=== PATIENT | female | born 1935 | race Caucasian/White ===

== ENCOUNTER 2017-08-11 08:28 | Day surgery (SDC) | payer MEDICARE, BC ==
[~2017-08-11] VITALS: Ht 172.8 cm; Wt 74.0 kg
[~2017-08-11 08:28] MED LIST: ATIVAN 0.50.5 MG/TAB PO; CEFTIN500 MG PO; JANTOVEN2 MG PO; LANOXIN 0.25M0.25 MG PO; LOPRESSOR 550 MG/TAB PO; LUTEIN20 MG PO; NORCO 325 MG-51 TAB PO; PROTONIX 40MG T40 MG PO; TOPROL XL 50MG50 MG PO; TYLENOL 500MG500 MG PO; VALIUM 5MG T5 MG/TAB PO
[2017-08-11 08:50] LABS: HEMATOCRIT 41.2 % (37.0-47.0); HEMOGLOBIN 13.1 g/dl (12.5-16.0); MEAN CELL VOLUME 100 fl (80.0-100.0); MEAN CORPUSCULAR HEMOGLOBIN 32 pg (27.0-31.0); MEAN CORPUSCULAR HGB CONC 32 g/dl (33.0-37.0); MEAN PLATELET VOLUME 9.7 fl (7.4-10.4); PLATELET COUNT 273 K/mm3 (130-400); RED BLOOD COUNT 4.12 M/mm3 (4.10-5.30); REDCELL DISTRIBUTION WIDTH-CV 13.3 % (11.5-14.5)
[2017-08-11 08:55] LABS: INR 1.8 (0.8-3.0); PROTHROMBIN TIME 20.6 SECONDS (9.7-12.8)
[2017-08-11 09:02] LABS: CALCIUM 9.2 mg/dL (8.4-10.2); CREATININE, serum 0.86 mg/dL (0.52-1.25); POTASSIUM 3.9 mmol/L (3.4-5.0)
[2017-08-11] MEDS ORDERED: PROZAC 10MG10 MG PO (09:11)
[2017-08-11] MEDS ORDERED: TAMBOCOR 1100 MG/TAB PO (09:11)
[2017-08-11] MEDS ORDERED: GLUCOPHAGE500 MG/TAB PO (09:13)
[2017-08-11] MEDS ORDERED: DOXYCYCLINE 50M50 MG PO (09:13)
[2017-08-11 09:14] VITALS: BP 136/87; PULSE 83; TEMP 97.5
[2017-08-11] MEDS ORDERED: B-12 500 MCG PO (09:52)
[2017-08-11] MEDS ORDERED: ZEBETA 5MG5 MG PO ×2 (09:53→11:40)
[2017-08-11] MEDS ORDERED: COUMADIN 2MG2 MG/TAB PO (09:55)
[2017-08-11 11:30] VITALS: BP 99/67; PULSE 52
[2017-08-11 11:45] VITALS: BP 111/73; PULSE 50
[2017-08-11 12:00] VITALS: BP 105/71; PULSE 50
[2017-08-11 12:15] VITALS: BP 106/83; PULSE 50
[2017-08-11 12:30] VITALS: BP 121/69; PULSE 54; TEMP 97.7
== END 2017-08-11 13:13 | disposition home or self-care (01) ==
LOC: COL.CAR 08:28
PROVIDERS: Internal Medicine Cardiovascular Disease
DX: I48.0 Paroxysmal atrial fibrillation (principal); I48.4 Atypical atrial flutter; Z79.01 Long term (current) use of anticoagulants; I10 Essential (primary) hypertension; Z86.718 Personal history of other venous thrombosis and embolism; E11.9 Type 2 diabetes mellitus without complications; Z79.84 Long term (current) use of oral hypoglycemic drugs; Z85.3 Personal history of malignant neoplasm of breast; Z85.118 Personal history of other malignant neoplasm of bronchus and lung; Z92.3 Personal history of irradiation; Z92.21 Personal history of antineoplastic chemotherapy; F32.9 Major depressive disorder, single episode, unspecified; F41.9 Anxiety disorder, unspecified; I34.0 Nonrheumatic mitral (valve) insufficiency; I08.2 Rheumatic disorders of both aortic and tricuspid valves; Z85.820 Personal history of malignant melanoma of skin; Z88.8 Allergy status to other drugs, medicaments and biological substances; Z68.24 Body mass index [BMI] 24.0-24.9, adult
CPT/HCPCS: G9654; J2704; J7030

== ENCOUNTER 2018-02-14 16:24 | Emergency (ER) | payer MEDICARE, BC ==
[~2018-02-14] VITALS: Ht 172.7 cm; Wt 74.1 kg
[~2018-02-14 16:24] MED LIST changes: +ANTIVERT 25MG25 MG PO; +B-12 500 MCG PO; +BETAPACE 120MG120 MG PO; +CALCIUM CARB500 MG PO; +CEPHALEXIN500 M1 PO; +COUMADIN 2MG2 MG/TAB PO; +DOXYCYCLINE 50M50 MG PO; +FOSAMAX 70MG TA70 MG PO; +GLUCOPHAGE500 MG/TAB PO; +PROZAC 10MG10 MG PO; +TAMBOCOR 1100 MG/TAB PO; +VITAMIN D31000 I1 PO; +ZEBETA 5MG5 MG PO
[2018-02-14 16:35] VITALS: TEMP 98.2
[2018-02-14 17:01] LABS: INR 3.9 (0.8-3.0); PROTHROMBIN TIME 44.6 SECONDS (9.7-12.8)
[2018-02-14 17:02] LABS: BASO # 0.1 (0.0-0.2); BASO % 0.7 % (0.0-2.0); EOS % 0.2 % (0-4.0); GRAN % 69.1 % (42.2-75.2); HEMATOCRIT 37.7 % (37.0-47.0); HEMOGLOBIN 11.8 g/dl (12.5-16.0); LYMPH # 1.7 (1.2-3.4); MEAN CELL VOLUME 97 fl (80.0-100.0); MEAN CORPUSCULAR HEMOGLOBIN 30 pg (27.0-31.0); MEAN CORPUSCULAR HGB CONC 31 g/dl (33.0-37.0); MEAN PLATELET VOLUME 9.1 fl (7.4-10.4); MONO # 0.8 (0.1-0.6); MONO % 9.7 % (1.7-9.3); PLATELET COUNT 489 K/mm3 (130-400); RED BLOOD COUNT 3.88 M/mm3 (4.10-5.30); REDCELL DISTRIBUTION WIDTH-CV 13.3 % (11.5-14.5)
[2018-02-14 17:07] LABS: ALANINE AMINOTRANSFERASE 21 U/L (9-52); ALBUMIN 3.9 gm/dL (3.5-5.0); ALKALINE PHOSPHATASE 119 U/L (50-136); ANION GAP 11 mmol/L (7-16); AST,SGOT 26 U/L (15-37); BILIRUBIN,TOTAL 0.6 mg/dL (0.0-1.0); BLOOD UREA NITROGEN 13 mg/dL (7-17); CALCIUM 9.3 mg/dL (8.4-10.2); CARBON DIOXIDE 28 mmol/L (22-30); CHLORIDE 94 mmol/L (98-107); GLUCOSE 134 mg/dL (74-106); POTASSIUM 4.3 mmol/L (3.4-5.0); SODIUM 133 mmol/L (137-145); TOTAL PROTEIN 7.8 gm/dL (6.4-8.2)
[2018-02-14 17:18] LABS: TROPONIN-I < 0.012 ng/mL (0.000-0.034)
[2018-02-14 19:52] VITALS: BP 102/77; PULSE 103
== END 2018-02-14 20:10 | disposition other institution (70) ==
LOC: COL.ER 16:24
PROVIDERS: Emergency Medicine
DX: I48.92 Unspecified atrial flutter (principal); R07.9 Chest pain, unspecified; R06.00 Dyspnea, unspecified; I10 Essential (primary) hypertension; Z85.3 Personal history of malignant neoplasm of breast; Z85.118 Personal history of other malignant neoplasm of bronchus and lung; Z95.9 Presence of cardiac and vascular implant and graft, unspecified; Z95.0 Presence of cardiac pacemaker; Z79.01 Long term (current) use of anticoagulants; Z79.84 Long term (current) use of oral hypoglycemic drugs
CPT/HCPCS: J7030

== ENCOUNTER → 2018-03-09 | Outpatient (REF) ==
[2018-03-09 10:06] LABS: CALCIUM 9.1 mg/dL (8.4-10.2); CREATININE, serum 0.67 mg/dL (0.52-1.25); POTASSIUM 5.2 mmol/L (3.4-5.0)
== END ==
LOC: ZLAB.STJ 09:44
PROVIDERS: Family Medicine
DX: R79.89 Other specified abnormal findings of blood chemistry (principal)

== ENCOUNTER 2018-04-20 08:28 | Outpatient (CLI) | payer MEDICARE, BC ==
[~2018-04-20] VITALS: Ht 172.7 cm; Wt 70.3 kg
[2018-04-20] MEDS ORDERED: CALAN120 MG PO (09:06)
[2018-04-20] MEDS ORDERED: LASIX 20MG TABL20 MG PO (09:06)
[2018-04-20] MEDS ORDERED: MIRALAX PA17 GM/Dose PO (09:06)
[2018-04-20] MEDS ORDERED: LOPRESSOR100 MG PO (09:07)
[2018-04-20] MEDS ORDERED: ROXICODONE 55 MG/TAB PO (09:08)
[2018-04-20 09:09] VITALS: BP 143/106; PULSE 67; TEMP 98
[2018-04-20 09:31] LABS: HEMATOCRIT 45.3 % (37.0-47.0); HEMOGLOBIN 13.6 g/dl (12.5-16.0); MEAN CELL VOLUME 98 fl (80.0-100.0); MEAN CORPUSCULAR HEMOGLOBIN 29 pg (27.0-31.0); MEAN CORPUSCULAR HGB CONC 30 g/dl (33.0-37.0); MEAN PLATELET VOLUME 10.1 fl (7.4-10.4); PLATELET COUNT 339 K/mm3 (130-400); RED BLOOD COUNT 4.64 M/mm3 (4.10-5.30); REDCELL DISTRIBUTION WIDTH-CV 14.6 % (11.5-14.5)
[2018-04-20 09:36] LABS: INR 3.3 (0.8-3.0); PROTHROMBIN TIME 38.1 SECONDS (9.7-12.8)
[2018-04-20 09:54] LABS: CALCIUM 9.2 mg/dL (8.4-10.2); CREATININE, serum 0.78 mg/dL (0.52-1.25); POTASSIUM 4.1 mmol/L (3.4-5.0)
[2018-04-20 10:25] VITALS: BP 123/89; PULSE 88; TEMP 98
[2018-04-20 10:40] VITALS: BP 128/85; PULSE 84; TEMP 98
== END 2018-04-20 12:08 | disposition home or self-care (01) ==
LOC: COL.RAD 08:28
PROVIDERS: Internal Medicine Cardiovascular Disease
DX: I34.0 Nonrheumatic mitral (valve) insufficiency (principal); I51.7 Cardiomegaly; I35.1 Nonrheumatic aortic (valve) insufficiency
CPT/HCPCS: G9654; J2704

== ENCOUNTER → 2018-05-18 | Outpatient (CLI) | payer MEDICARE, BC ==
[~2018-05-18] VITALS: Ht 172.7 cm; Wt 68.8 kg
[~2018-05-18] MED LIST changes: +CALAN120 MG PO; +DOXYCYCLINE 10100 MG PO; +LASIX 20MG TABL20 MG PO; +LOPRESSOR100 MG PO; +MIRALAX PA17 GM/Dose PO; +ROXICODONE 55 MG/TAB PO
[2018-05-18 10:31] VITALS: BP 138/97; PULSE 104
== END ==
LOC: COL.RAD 09:45
PROVIDERS: Internal Medicine Pulmonary Disease
DX: J90 Pleural effusion, not elsewhere classified (principal); I48.91 Unspecified atrial fibrillation

== ENCOUNTER → 2018-06-08 | Outpatient (CLI) | payer MEDICARE, BC | LOC: MC.RAD 13:30 | DX: Z12.31 Encounter for screening mammogram for malignant neoplasm of breast (principal); C50.412 Malignant neoplasm of upper-outer quadrant of left female breast; Z90.12 Acquired absence of left breast and nipple ==

== ENCOUNTER → 2018-06-10 | Outpatient (CLI) | payer MEDICARE, BC | LOC: MC.RAD 09:28 | DX: C50.412 Malignant neoplasm of upper-outer quadrant of left female breast (principal); N64.89 Other specified disorders of breast | CPT/HCPCS: G0279 ==

== ENCOUNTER → 2019-06-29 | Outpatient (CLI) | payer MEDICARE, BC | LOC: MC.RAD 14:09 | DX: Z12.31 Encounter for screening mammogram for malignant neoplasm of breast (principal); Z90.12 Acquired absence of left breast and nipple; Z85.3 Personal history of malignant neoplasm of breast ==

== ENCOUNTER → 2020-07-01 | Outpatient (CLI) | payer MEDICARE, BC | LOC: MC.RAD 10:10 | DX: Z12.31 Encounter for screening mammogram for malignant neoplasm of breast (principal); Z90.12 Acquired absence of left breast and nipple ==

== ENCOUNTER 2020-09-09 07:38 | Inpatient (IN) | payer MEDICARE, BC ==
[~2020-09-09] VITALS: Ht 172.7 cm; Wt 74.1 kg
[2020-09-09 08:08] LABS: BASO # 0.1 (0.0-0.2); BASO % 0.6 % (0.0-2.0); EOS % 0.4 % (0-4.0); GRAN % 72.7 % (42.2-75.2); HEMATOCRIT 44.4 % (37.0-47.0); HEMOGLOBIN 13.7 g/dl (12.5-16.0); LYMPH # 1.6 (1.2-3.4); LYMPH % 17.1 % (20.0-51.0); MEAN CELL VOLUME 103 fl (80.0-100.0); MEAN CORPUSCULAR HEMOGLOBIN 32 pg (27.0-31.0); MEAN CORPUSCULAR HGB CONC 31 g/dl (33.0-37.0); MEAN PLATELET VOLUME 9.9 fl (7.4-10.4); MONO # 0.9 (0.1-0.6); MONO % 8.9 % (1.7-9.3); PLATELET COUNT 343 K/mm3 (130-400); RED BLOOD COUNT 4.33 M/mm3 (4.10-5.30); REDCELL DISTRIBUTION WIDTH-CV 14.1 % (11.5-14.5)
[2020-09-09 08:21] LABS: ALANINE AMINOTRANSFERASE 14 U/L (4-34); ALBUMIN 4.2 gm/dL (3.5-5.0); ALKALINE PHOSPHATASE 124 U/L (50-136); ANION GAP 7 mmol/L (7-16); AST,SGOT 26 U/L (15-37); BILIRUBIN,TOTAL 2.4 mg/dL (0.0-1.0); BLOOD UREA NITROGEN 14 mg/dL (7-17); CALCIUM 9.6 mg/dL (8.4-10.2); CARBON DIOXIDE 35 mmol/L (22-30); CHLORIDE 97 mmol/L (98-107); CREATININE, serum 0.74 (0.52-1.25); GLUCOSE 148 mg/dL (74-106); LIPASE 139 U/L (23-300); MAGNESIUM 2.3 mg/dL (1.6-2.3); PHOSPHOROUS 3.3 mg/dL (2.5-4.5); POTASSIUM 4.2 mmol/L (3.4-5.0); SODIUM 139 mmol/L (137-145); TOTAL PROTEIN 8.7 gm/dL (6.4-8.2)
[2020-09-09 08:33] LABS: TROPONIN-I < 0.012 ng/mL (0.000-0.035)
[2020-09-09 09:29] LABS: COLLECTION METHOD CLEAN CATCH
[2020-09-09 10:18] LABS: MUCOUS Present /lpf; PH 6 (5-8); URINE APPEARANCE Hazy; URINE BACTERIA Rare /hpf; URINE BILIRUBIN Positive (NEGATIVE); URINE BLOOD Negative (NEGATIVE); URINE CALCIUM OXALATE CRYSTAL Present /hpf; URINE COLOR Amber; URINE GLUCOSE Negative (NEGATIVE); URINE KETONE Trace (NEGATIVE); URINE LEUKOCYTE ESTERASE Negative (NEGATIVE); URINE NITRATE Negative (NEGATIVE); URINE PROTEIN(semi-quant) 2+ (NEGATIVE); URINE UROBILINOGEN >=4.0 mg/dL (NEGATIVE)
[2020-09-09 10:56] LABS: INR 1.6 (0.8-3.0); PROTHROMBIN TIME 18.4 SECONDS (9.7-12.8)
[2020-09-09] MEDS ORDERED: ZEBETA10 MG PO (11:03)
[2020-09-09] MEDS ORDERED: PEPCID 20MG TAB20 MG PO (11:03)
[2020-09-09 11:34] VITALS: BP 117/86; PULSE 100; TEMP 97.6
[2020-09-09 15:48] VITALS: BP 110/83; PULSE 99; TEMP 98
[2020-09-09 20:54] VITALS: BP 123/87; PULSE 100; TEMP 97
[2020-09-10] VITALS (20 sets, daily range): BP systolic 85–138; BP diastolic 62–87; PULSE 96–103; TEMP 97.3–97.9
[2020-09-10 07:14] LABS: BASO # 0.1 (0.0-0.2); BASO % 0.7 % (0.0-2.0); EOS # 0.1 (0.0-0.7); EOS % 1.6 % (0-4.0); GRAN # 5.7 (1.4-6.5); HEMATOCRIT 39.8 % (37.0-47.0); HEMOGLOBIN 12.2 g/dl (12.5-16.0); LYMPH # 1.5 (1.2-3.4); LYMPH % 17.6 % (20.0-51.0); MEAN CELL VOLUME 103 fl (80.0-100.0); MEAN CORPUSCULAR HEMOGLOBIN 32 pg (27.0-31.0); MEAN CORPUSCULAR HGB CONC 31 g/dl (33.0-37.0); MONO # 0.9 (0.1-0.6); MONO % 10.7 % (1.7-9.3); PLATELET COUNT 333 K/mm3 (130-400); RED BLOOD COUNT 3.86 M/mm3 (4.10-5.30); REDCELL DISTRIBUTION WIDTH-CV 13.9 % (11.5-14.5)
[2020-09-10 07:23] LABS: ALBUMIN 3.6 gm/dL (3.5-5.0); BILIRUBIN,TOTAL 1.4 mg/dL (0.0-1.0); CALCIUM 8.8 mg/dL (8.4-10.2); CREATININE, serum 0.83 (0.52-1.25); MAGNESIUM 2.3 mg/dL (1.6-2.3); POTASSIUM 3.6 mmol/L (3.4-5.0); TOTAL PROTEIN 7.7 gm/dL (6.4-8.2)
[2020-09-10 07:31] LABS: TROPONIN-I 0.014 ng/mL (0.000-0.035)
[2020-09-11] VITALS (8 sets, daily range): BP systolic 93–117; BP diastolic 56–71; PULSE 97–103; TEMP 97.5–98.3
[2020-09-11 07:09] LABS: BASO # 0.1 (0.0-0.2); BASO % 0.5 % (0.0-2.0); EOS # 0.1 (0.0-0.7); GRAN # 6.6 (1.4-6.5); GRAN % 72.3 % (42.2-75.2); HEMATOCRIT 42.6 % (37.0-47.0); HEMOGLOBIN 12.7 g/dl (12.5-16.0); LYMPH # 1.3 (1.2-3.4); LYMPH % 13.6 % (20.0-51.0); MEAN CELL VOLUME 105 fl (80.0-100.0); MEAN CORPUSCULAR HEMOGLOBIN 31 pg (27.0-31.0); MEAN CORPUSCULAR HGB CONC 30 g/dl (33.0-37.0); MEAN PLATELET VOLUME 10.5 fl (7.4-10.4); MONO # 1.1 (0.1-0.6); MONO % 12.3 % (1.7-9.3); PLATELET COUNT 374 K/mm3 (130-400); RED BLOOD COUNT 4.07 M/mm3 (4.10-5.30); REDCELL DISTRIBUTION WIDTH-CV 14.2 % (11.5-14.5)
[2020-09-11 07:26] LABS: CALCIUM 8.6 mg/dL (8.4-10.2); CREATININE, serum 0.89 (0.52-1.25)
[2020-09-11 07:32] LABS: INR 1.4 (0.8-3.0); PROTHROMBIN TIME 16.1 SECONDS (9.7-12.8)
[2020-09-11 09:56] LABS: PARTIAL THROMBOPLASTIN TIME 33.9 SECONDS (26.0-37.0)
[2020-09-11] MEDS ORDERED: THERATEARS 0.60.6 ML OP ×2 (18:06→18:07)
[2020-09-12 04:00] VITALS: BP 106/68; PULSE 73; TEMP 98.1
[2020-09-12 07:14] LABS: BASO # 0.1 (0.0-0.2); BASO % 0.8 % (0.0-2.0); EOS # 0.1 (0.0-0.7); EOS % 1.1 % (0-4.0); GRAN # 5.3 (1.4-6.5); GRAN % 59.7 % (42.2-75.2); HEMATOCRIT 42.2 % (37.0-47.0); HEMOGLOBIN 12.9 g/dl (12.5-16.0); LYMPH # 2.3 (1.2-3.4); LYMPH % 25.9 % (20.0-51.0); MEAN CELL VOLUME 103 fl (80.0-100.0); MEAN CORPUSCULAR HEMOGLOBIN 31 pg (27.0-31.0); MEAN CORPUSCULAR HGB CONC 31 g/dl (33.0-37.0); MEAN PLATELET VOLUME 10.7 fl (7.4-10.4); MONO # 1.1 (0.1-0.6); MONO % 12.2 % (1.7-9.3); PLATELET COUNT 377 K/mm3 (130-400); RED BLOOD COUNT 4.11 M/mm3 (4.10-5.30); REDCELL DISTRIBUTION WIDTH-CV 13.9 % (11.5-14.5)
[2020-09-12 07:28] LABS: ALBUMIN 3.5 gm/dL (3.5-5.0); BILIRUBIN,TOTAL 0.9 mg/dL (0.0-1.0); CALCIUM 9.2 mg/dL (8.4-10.2); CREATININE, serum 0.89 (0.52-1.25); MAGNESIUM 2.5 mg/dL (1.6-2.3); POTASSIUM 3.6 mmol/L (3.4-5.0); TOTAL PROTEIN 7.7 gm/dL (6.4-8.2)
[2020-09-12 07:50] VITALS: BP 106/58; PULSE 99; TEMP 97.7
[2020-09-12] MEDS ORDERED: LANOXIN 0.25M0.25 MG PO ×2 (09:02)
[2020-09-12] MEDS ORDERED: LASIX 40MG TABL40 MG PO ×2 (09:03)
[2020-09-12] MEDS ORDERED: TOPROL XL 50MG50 MG PO ×2 (09:03)
[2020-09-12] MEDS ORDERED: ZESTRIL2.5 MG PO ×2 (09:04)
[2020-09-12 09:22] LABS: INR 1.6 (0.8-3.0); PROTHROMBIN TIME 18.3 SECONDS (9.7-12.8)
[2020-09-12 11:49] VITALS: BP 106/66; PULSE 102; TEMP 97.9
== END 2020-09-12 13:45 | disposition home or self-care (01) | DRG 286 ==
LOC: COL.ER 07:38 → MEDICAL 09:31
PROVIDERS: Emergency Medicine; Internal Medicine Adult Congenital Heart Disease; Physician Assistant; ADMIT Internal Medicine
PROC: 4A023N8 Measurement of Cardiac Sampling and Pressure, Bilateral, Percutaneous Approach (ICD-10-PCS; principal; 2020-09-10)
PROC: B2111ZZ Fluoroscopy of Multiple Coronary Arteries using Low Osmolar Contrast (ICD-10-PCS; 2020-09-10)
DX: I48.20 Chronic atrial fibrillation, unspecified (principal); I50.33 Acute on chronic diastolic (congestive) heart failure; E87.3 Alkalosis; I11.0 Hypertensive heart disease with heart failure; I48.92 Unspecified atrial flutter; I49.5 Sick sinus syndrome; I27.20 Pulmonary hypertension, unspecified; I27.22 Pulmonary hypertension due to left heart disease; Z20.822 Contact with and (suspected) exposure to COVID-19; R09.02 Hypoxemia; I08.3 Combined rheumatic disorders of mitral, aortic and tricuspid valves; K21.9 Gastro-esophageal reflux disease without esophagitis; E80.6 Other disorders of bilirubin metabolism; E11.9 Type 2 diabetes mellitus without complications; F32.9 Major depressive disorder, single episode, unspecified; R13.10 Dysphagia, unspecified; K59.00 Constipation, unspecified; E78.5 Hyperlipidemia, unspecified; R74.02 Elevation of levels of lactic acid dehydrogenase [LDH]; R53.81 Other malaise; Z79.01 Long term (current) use of anticoagulants; Z95.0 Presence of cardiac pacemaker; Z85.3 Personal history of malignant neoplasm of breast; Z85.118 Personal history of other malignant neoplasm of bronchus and lung; Z86.718 Personal history of other venous thrombosis and embolism; Z92.21 Personal history of antineoplastic chemotherapy; Z87.891 Personal history of nicotine dependence; Z90.710 Acquired absence of both cervix and uterus; Z88.6 Allergy status to analgesic agent
CPT/HCPCS: 99222-AI; 99232-AI; 99239; C1760; C1769; C1894; J1644; J1940; J2704; J3010; J7030; J7040; L1830; Q9967

== ENCOUNTER 2020-09-17 11:47 | Emergency (ER) | payer MEDICARE, BC ==
[~2020-09-17] VITALS: Ht 175.3 cm; Wt 72.7 kg
[~2020-09-17 11:47] MED LIST changes: +LASIX 40MG TABL40 MG PO; +PEPCID 20MG TAB20 MG PO; +THERATEARS 0.60.6 ML OP; +ZEBETA10 MG PO; +ZESTRIL2.5 MG PO
[2020-09-17 12:01] VITALS: TEMP 97.6
[2020-09-17 12:23] LABS: COLLECTION METHOD CLEAN CATCH
[2020-09-17 12:32] LABS: MUCOUS Present /lpf; PH 6 (5-8); URINE APPEARANCE Cloudy; URINE BACTERIA Rare /hpf; URINE BILIRUBIN Negative (NEGATIVE); URINE BLOOD Negative (NEGATIVE); URINE COLOR Amber; URINE GLUCOSE Negative (NEGATIVE); URINE KETONE Negative (NEGATIVE); URINE LEUKOCYTE ESTERASE Negative (NEGATIVE); URINE NITRATE Negative (NEGATIVE); URINE PROTEIN(semi-quant) Negative (NEGATIVE); URINE RBC 0-2 /hpf; URINE UROBILINOGEN >=4.0 mg/dL (NEGATIVE)
[2020-09-17 12:38] LABS: BASO # 0.1 (0.0-0.2); BASO % 0.9 % (0.0-2.0); EOS # 0.1 (0.0-0.7); EOS % 1.4 % (0-4.0); GRAN # 6.7 (1.4-6.5); HEMATOCRIT 45.7 % (37.0-47.0); HEMOGLOBIN 14.2 g/dl (12.5-16.0); LYMPH # 1.6 (1.2-3.4); LYMPH % 17.3 % (20.0-51.0); MEAN CELL VOLUME 102 fl (80.0-100.0); MEAN CORPUSCULAR HEMOGLOBIN 32 pg (27.0-31.0); MEAN CORPUSCULAR HGB CONC 31 g/dl (33.0-37.0); MONO # 0.7 (0.1-0.6); PLATELET COUNT 438 K/mm3 (130-400); RED BLOOD COUNT 4.49 M/mm3 (4.10-5.30); REDCELL DISTRIBUTION WIDTH-CV 13.6 % (11.5-14.5)
[2020-09-17 12:40] LABS: ARTERIAL BLD GAS O2 SATURATION 92.3 % (92-100); ARTERIAL BLOOD GAS BASE EXCESS 5.8 (-2-2); ARTERIAL BLOOD GAS HCO3 30.6 meq/L (22-26); ARTERIAL BLOOD GAS PCO2 45.1 mmHg (35-45); ARTERIAL BLOOD GAS PO2 62.7 mmHg (80-100); ARTERIAL BLOOD GAS pH 7.45 (7.35-7.45)
[2020-09-17 13:33] LABS: ALBUMIN 2.6 gm/dL (3.5-5.0); BILIRUBIN,TOTAL 0.5 mg/dL (0.0-1.0); C-REACTIVE PROTEIN 1.7 mg/dL (0.0-0.9); CALCIUM 8.2 mg/dL (8.4-10.2); CREATININE, serum 0.6 (0.52-1.25); POTASSIUM 3.8 mmol/L (3.4-5.0); TOTAL PROTEIN 5.4 gm/dL (6.4-8.2)
[2020-09-17 13:52] VITALS: BP 145/96; PULSE 89
--- NOTE | 2020-09-17 14:01 | NUR ---
SW consult received. SW met with patient and in ED room 11. Patient's reports that he may have messed on the medications that he gave . Patient was recently here and declined home health, SW revisited the home health supports. is for getting supports and mentioned that he needs supports with setting up medications. Patient does not want home health but SW discussed home health versus home health. Faxed [facility] home health services for supports. Spoke with Goyo on admission. WIll fax Dr. Wayne.
== END 2020-09-17 14:14 | disposition home or self-care (01) ==
LOC: COL.ER 11:47
PROVIDERS: Family Medicine
DX: R44.3 Hallucinations, unspecified (principal); I10 Essential (primary) hypertension; I48.91 Unspecified atrial fibrillation; Z88.8 Allergy status to other drugs, medicaments and biological substances; Z79.01 Long term (current) use of anticoagulants; Z79.899 Other long term (current) drug therapy
CPT/HCPCS: J7120

== ENCOUNTER 2020-11-19 22:58 | Observation (INO) | payer MEDICARE, BC ==
[~2020-11-19] VITALS: Ht 172.8 cm; Wt 67.2 kg
[2020-11-19 23:35] LABS: BASO % 0.2 % (0.0-2.0); EOS % 0.5 % (0-4.0); GRAN # 5.9 (1.4-6.5); GRAN % 70.6 % (42.2-75.2); HEMATOCRIT 39.2 % (37.0-47.0); HEMOGLOBIN 12.5 g/dl (12.5-16.0); LYMPH # 1.5 (1.2-3.4); MEAN CELL VOLUME 97 fl (80.0-100.0); MEAN CORPUSCULAR HEMOGLOBIN 31 pg (27.0-31.0); MEAN CORPUSCULAR HGB CONC 32 g/dl (33.0-37.0); MEAN PLATELET VOLUME 9.5 fl (7.4-10.4); MONO # 0.9 (0.1-0.6); MONO % 10.3 % (1.7-9.3); PLATELET COUNT 376 K/mm3 (130-400); RED BLOOD COUNT 4.04 M/mm3 (4.10-5.30); REDCELL DISTRIBUTION WIDTH-CV 13.8 % (11.5-14.5)
[2020-11-19 23:43] LABS: PARTIAL THROMBOPLASTIN TIME 68.4 SECONDS (26.0-37.0)
[2020-11-19 23:45] LABS: BILIRUBIN,TOTAL 0.7 mg/dL (0.0-1.0); CALCIUM 8.5 mg/dL (8.4-10.2); CREATININE, serum 1.18 (0.52-1.25); TOTAL PROTEIN 6.5 gm/dL (6.4-8.2)
[2020-11-19 23:49] LABS: INR 8.1 (0.8-3.0); PROTHROMBIN TIME 92.3 SECONDS (9.7-12.8)
[2020-11-19 23:57] LABS: POTASSIUM 2.8 mmol/L (3.4-5.0)
[2020-11-19 23:58] LABS: TROPONIN-I 0.128 ng/mL (0.000-0.035)
[2020-11-20 02:49] LABS: COLLECTION METHOD CLEAN CATCH
[2020-11-20 02:56] LABS: MUCOUS Present /lpf; PH 6 (5-8); SQUAMOUS EPITHELIAL 0-2 /hpf; URINE APPEARANCE Clear; URINE BACTERIA Rare /hpf; URINE BILIRUBIN Negative (NEGATIVE); URINE BLOOD 2+ (NEGATIVE); URINE COLOR Yellow; URINE GLUCOSE Negative (NEGATIVE); URINE KETONE Negative (NEGATIVE); URINE LEUKOCYTE ESTERASE Negative (NEGATIVE); URINE NITRATE Negative (NEGATIVE); URINE PROTEIN(semi-quant) Negative (NEGATIVE); URINE RBC 0-2 /hpf; URINE UROBILINOGEN Negative (NEGATIVE); URINE WBC 0-2 /hpf
[2020-11-20 06:34] LABS: BASO % 0.3 % (0.0-2.0); EOS % 0.3 % (0-4.0); GRAN # 7.6 (1.4-6.5); GRAN % 71.5 % (42.2-75.2); HEMATOCRIT 38.3 % (37.0-47.0); HEMOGLOBIN 12.4 g/dl (12.5-16.0); LYMPH # 1.8 (1.2-3.4); LYMPH % 17.1 % (20.0-51.0); MEAN CELL VOLUME 96 fl (80.0-100.0); MEAN CORPUSCULAR HEMOGLOBIN 31 pg (27.0-31.0); MEAN CORPUSCULAR HGB CONC 32 g/dl (33.0-37.0); MEAN PLATELET VOLUME 9.7 fl (7.4-10.4); MONO # 1.1 (0.1-0.6); MONO % 10.2 % (1.7-9.3); PLATELET COUNT 342 K/mm3 (130-400); RED BLOOD COUNT 4.01 M/mm3 (4.10-5.30); REDCELL DISTRIBUTION WIDTH-CV 13.8 % (11.5-14.5)
[2020-11-20 06:52] LABS: CALCIUM 8.3 mg/dL (8.4-10.2); CREATININE, serum 1.09 (0.52-1.25); POTASSIUM 3.4 mmol/L (3.4-5.0)
[2020-11-20 07:08] LABS: TROPONIN-I 6 HR POST INITIAL 0.106 ng/mL (0.000-0.034)
[2020-11-20 07:14] LABS: MAGNESIUM 2.1 mg/dL (1.6-2.3)
[2020-11-20 07:51] VITALS: BP 93/63; PULSE 79
[2020-11-20 08:00] VITALS: BP 132/86; PULSE 80; TEMP 98.2
--- NOTE | 2020-11-20 09:01 | NUR ---
PT ADMITTED FROM ED FOR WEAKNESS, SYNCOPE AND FALL. PT IS AXOX3 BUT VERY [place]. PT IS V PACED ON TELE. PT ORIENTED TO ROOM AND FLOOR. WILL CONTINUE TO [facility].
--- NOTE | 2020-11-20 09:44 | NUR ---
TONY RN WITH NOTIFIED OF ELEVATED TROP. PLAN FOR ECHO TODAY AND NUC MED STRESS TEST TOMORROW.
[2020-11-20] MEDS ORDERED: COUMADIN 1MG1 MG/TAB PO (09:46)
[2020-11-20] MEDS ORDERED: VITAMIN D 400400 IU PO (09:47)
[2020-11-20] MEDS ORDERED: TUMS ULTRA1000 MG PO (09:48)
[2020-11-20] MEDS ORDERED: TYLENOL 500MG500 MG PO (09:49)
[2020-11-20] MEDS ORDERED: XALATAN EYE DROPS OD (09:49)
--- NOTE | 2020-11-20 11:30 | NUR ---
AND BOTH ROUNDED AND EVALUATED PT.
[2020-11-20 11:52] VITALS: BP 92/54; PULSE 79; TEMP 97.9
[2020-11-20 14:30] LABS: INR 7.3 (0.8-3.0); PROTHROMBIN TIME 82.1 SECONDS (9.7-12.8)
--- NOTE | 2020-11-20 16:12 | NUR ---
Groundskeeper Porter met with patient to discuss discharge planning. Patient lives in [place] with her , Todd (ph#[phone]) [address] Dr[address] Garcia for primary care. Patient obtains medications from [facility] and uses a walker at home for ambulation. Patient states she is normally pretty independent with ADLS, however has been very weak the last few days. PT/OT are ordered but were unable to work with patient due to her INR. Patient is unsure if she has Advance Directives. Patient states she plans to return home upon discharge. SW discussed Home Health with patient who states she does not feel she needs it at this time. SW contacted patient's , Todd and left a message. SW then contacted patient's daughter, Yulia to discuss discharge planning. Yulia advised that patient also has a rollator and commode at home. Yulia states patient has had HH services in the past but is usually not very agreeable to work with them. Discharge Plan: Home, declined HH services, will follow up.
[2020-11-20 19:15] VITALS: BP 114/73; PULSE 61; TEMP 98.1
[2020-11-20 23:10] VITALS: BP 126/77; PULSE 82; TEMP 98.7
[2020-11-21] VITALS (13 sets, daily range): BP systolic 94–130; BP diastolic 52–73; PULSE 79–96; TEMP 97.5–98.5
--- NOTE | 2020-11-21 00:50 | NUR ---
ALERT AND OX2 TO SELF AND PLACE. DENIES ANY PAIN, SOA OR CHEST DISCOMFORT. PM MEDS GIVEN. PT IMPULSIVE AND FOUND TO BE CLIMBING OUT OF BED UNATTENTED. BED ALARM ON, CALL LIGHT WI REACH. PANTS AND UNDERPAD SATURATED BUT PT WANTED TO KEEP THEM ON. COMPLETE LINEN CHANGED AND GOWN. REORIENTED TO SITUATION AND THAT SHE IS GETTING STRESS TEST IN AM. NEEDS MET.
[2020-11-21 06:18] LABS: BASO % 0.2 % (0.0-2.0); EOS # 0.1 (0.0-0.7); EOS % 1.6 % (0-4.0); GRAN % 67.4 % (42.2-75.2); HEMATOCRIT 37.9 % (37.0-47.0); LYMPH # 1.8 (1.2-3.4); LYMPH % 19.7 % (20.0-51.0); MEAN CELL VOLUME 97 fl (80.0-100.0); MEAN CORPUSCULAR HEMOGLOBIN 31 pg (27.0-31.0); MEAN CORPUSCULAR HGB CONC 32 g/dl (33.0-37.0); MEAN PLATELET VOLUME 9.6 fl (7.4-10.4); MONO % 10.9 % (1.7-9.3); PLATELET COUNT 370 K/mm3 (130-400)
[2020-11-21 06:27] LABS: CALCIUM 8.5 mg/dL (8.4-10.2); CREATININE, serum 1.06 (0.52-1.25); MAGNESIUM 2.1 mg/dL (1.6-2.3); POTASSIUM 3.5 mmol/L (3.4-5.0)
--- NOTE | 2020-11-21 06:27 | NUR ---
PT SLEPT MOST OF NIGHT. INTERMITTENT CONFUSION, TALKING ABOUT WHALES AND HER SHOES BEING IN THE SINK. NURSE WILL GET AHOLD OF DAUGHTER TO SIGN FOR LEXISCAN TODAY.
[2020-11-21 06:37] LABS: INR 5.7 (0.8-3.0); PROTHROMBIN TIME 64.4 SECONDS (9.7-12.8)
--- NOTE | 2020-11-21 07:27 | NUR ---
aT 0600 THIS NURSE TRIED TO VISIT WITH PATIENT REGARDING THE LEXISCAN PROCEDURE. PT DID NOT SEEMS TO BE VERY ALERT AND ONLY SAID "HUH". SPOKE TO STAFF AND THEY REPORTED THAT SHE SEEMED TO HAVE SUNDOWNERS. CALLED DAUGHTER REGARDING THE PROCEDURE AND EXPLINED EVERYTHING TO HER. THEN SHE REQUESTED WE CALL HER DAD FOR THE ANSWER. STAFF REPORTED THAT HE DID NOT SEEMS TO BE IN GOOD SHAPE TO ANSWER QUESTIONS EITHER. SPOKE TO HER THIS AM AND HE SEEMED VERY ALERT AND ORIENTED. HE ANSWERED ALL QUESTIONS ASKED THE APPROPRIATE QUESTIONS AND THEN GAVE A VERBAL YES TO THE PROCEDURE FOR MARY KATE BERNARD AND Luiz. SPOKE TO [facility] AND THEY ARE AWARE THAT WE ARE TO PROCEED. JOHNSON AND SPOKE TO ALAN TO LET HER KNOW THAT LEXISCAN IS A GO.
--- NOTE | 2020-11-21 11:22 | NUR ---
Manager Scientific attended clinical rounds with the team. The patient's Antelmo present. The patient's INR is 5.7 this day and once it is under 3 the patient will have an EGD. PT/OT/ST following with the patient. Following rounds, VIKTOR met with the patient and Antelmo to discuss home health. Antelmo reports they have had [facility] in the past. The patient and Antelmo declined HH at this time. VIKTOR contacted Narcisa with [facility]. She confirmed the patient did have services and she was discharged from services on 10/18/20. *Discharge disposition: Home with spouse (declined home health)
--- NOTE | 2020-11-21 12:41 | NUR ---
PT INITIALLY DROWSY IN AM, IV UNHOOKED FOR LEXISCAN, REMAINED NPO.
--- NOTE | 2020-11-21 12:42 | NUR ---
PT PLEASANT, VERY [place], FOLLOWS COMMANDS, LUNCH ORDERED FOR PT, ASSESSMENT PERFORMED, MEDICATIONS GIVEN, NEURO CHECK PERFORMED AND PT AOX4, NO OTHER NEEDS AT THIS TIME.
[2020-11-21 15:14] LABS: INR 5.1 (0.8-3.0)
--- NOTE | 2020-11-21 18:48 | NUR ---
Patient has done well today and has not had any c/o pain. This RN assisted her to the bathroom and the patient did well with ambulation. The patient did have a lexiscan this am and it went well. The spent most of the day in the room with the patient.
--- NOTE | 2020-11-21 23:09 | NUR ---
ALERT AND OX3. APPEARED TO HAVE SUNDOWNERS LAST NIGHT. SO FAR TONIGHT NOT MUCH. THUS FAR NOT CLIMBING OUT OF BED UNATTENED. VERY [facility] [place], HAVE TO YELL TO GET PT TO UNDERSTAND. POC DISCUSSED. PM MEDS GIVEN. INSTURCTED ON USING CALL LIGHT FOR HELP AND SAFETY. PT V/U. NEEDS REMINDERS.
[2020-11-22 00:14] VITALS: BP 124/66; PULSE 80; TEMP 97.8
[2020-11-22 04:00] VITALS: BP 117/69; PULSE 81; TEMP 98.2
--- NOTE | 2020-11-22 06:00 | NUR ---
RESTED THROUGH THE NIGHT WITHOUT INCIDENT. NEEDS MET.
[2020-11-22 06:57] LABS: HEMATOCRIT 37.4 % (37.0-47.0); HEMOGLOBIN 11.8 g/dl (12.5-16.0); MEAN CELL VOLUME 98 fl (80.0-100.0); MEAN CORPUSCULAR HEMOGLOBIN 31 pg (27.0-31.0); MEAN CORPUSCULAR HGB CONC 32 g/dl (33.0-37.0); MEAN PLATELET VOLUME 9.9 fl (7.4-10.4); PLATELET COUNT 377 K/mm3 (130-400); RED BLOOD COUNT 3.83 M/mm3 (4.10-5.30); REDCELL DISTRIBUTION WIDTH-CV 14.2 % (11.5-14.5)
--- NOTE | 2020-11-22 07:03 | NUR ---
PT SLEEPING IN ROOM, NO OTHER NEEDS
[2020-11-22 07:06] LABS: INR 3.8 (0.8-3.0); PROTHROMBIN TIME 42.9 SECONDS (9.7-12.8)
[2020-11-22 07:18] LABS: CALCIUM 8.2 mg/dL (8.4-10.2); CREATININE, serum 0.94 (0.52-1.25)
[2020-11-22 07:50] VITALS: BP 117/63; PULSE 81; TEMP 97.9
[2020-11-22] MEDS ORDERED: LANOXIN 0.120.125 MG PO (09:35)
--- NOTE | 2020-11-22 09:44 | NUR ---
PT AOX3, NOT ORIENTED TO SITUATION, INR/PT STILL ELEVATED, COFFEE BROUGHT FOR PT AND PT SPOUSE, PT PLEASANT, UP TO CHAIR, MEDICATIONS GIVEN, ASSESSMENT PERFORMED, NO OTHER NEEDS AT THIS TIME.
--- NOTE | 2020-11-22 10:50 | NUR ---
extensive discharge education provided on procedure on wednesday, educated on npo status at midnight the night before, educated on changes made to medications and upcoming appts. unclear if pt and pt actually understood material, it was repeated multiple times verbally and written instruction also provided. pt and pt denied any questions at this time. iv removed and tele removed. assisted pt getting dressed, pt steady with walker, pt wheeled to ER entrance and assisted into vehicle, no other needs at this time.
--- NOTE | 2020-11-22 13:32 | NUR ---
Pantry Chef attended clinical rounds with the team. The [facility]. The patient and her were agreeable to home health and chose [facility] since they have had them in the past. The patient and declined PT/OT. Referral sent. Narcisa with [facility] reports they can accept the patient. Disharge orders and discharge summary faxed. VIKTOR made APS report. #[id number] *Discharge disposition[facility] services
== END 2020-11-22 10:50 | disposition home or self-care (01) ==
LOC: COL.ER 22:58 → MEDICAL 11-20 02:27
PROVIDERS: Emergency Medicine; Internal Medicine; Physician Assistant; Student in an Organized Health Care Education/Training Program; ADMIT Student in an Organized Health Care Education/Training Program
DX: I95.9 Hypotension, unspecified (principal); I10 Essential (primary) hypertension; R55 Syncope and collapse; R94.31 Abnormal electrocardiogram [ECG] [EKG]; I21.A1 Myocardial infarction type 2; I48.91 Unspecified atrial fibrillation; I48.92 Unspecified atrial flutter; I49.5 Sick sinus syndrome; I27.20 Pulmonary hypertension, unspecified; I34.0 Nonrheumatic mitral (valve) insufficiency; R63.0 Anorexia; R63.4 Abnormal weight loss; R68.81 Early satiety; R13.10 Dysphagia, unspecified; E87.6 Hypokalemia; R53.81 Other malaise; J90 Pleural effusion, not elsewhere classified; K21.9 Gastro-esophageal reflux disease without esophagitis; F32.9 Major depressive disorder, single episode, unspecified; Z85.118 Personal history of other malignant neoplasm of bronchus and lung; Z85.3 Personal history of malignant neoplasm of breast; Z95.0 Presence of cardiac pacemaker; Z20.822 Contact with and (suspected) exposure to COVID-19; Z79.899 Other long term (current) drug therapy; Z79.01 Long term (current) use of anticoagulants
CPT/HCPCS: 99232-AI; 99239; A9500; G0378; J2785; J3475; J3480; J7030

== ENCOUNTER 2020-11-25 11:55 | Day surgery (SDC) | payer MEDICARE, BC ==
[~2020-11-25] VITALS: Ht 175.3 cm; Wt 70.1 kg
[~2020-11-25 11:55] MED LIST changes: +COUMADIN 1MG1 MG/TAB PO; +LANOXIN 0.120.125 MG PO; +TUMS ULTRA1000 MG PO; +VITAMIN D 400400 IU PO; +XALATAN EYE DROPS OD
[2020-11-25 12:45] LABS: INR 1.9 (0.8-3.0); PROTHROMBIN TIME 21.3 SECONDS (9.7-12.8)
[2020-11-25 12:53] VITALS: BP 130/78; PULSE 88; TEMP 98.4
[2020-11-25 14:40] VITALS: BP 120/72; PULSE 81; TEMP 98.8
[2020-11-25 14:55] VITALS: BP 109/71; PULSE 88
[2020-11-25 15:10] VITALS: BP 120/73; PULSE 84
--- NOTE | 2020-11-25 16:45 | NUR ---
1440 PATIENT ARRIVES TO [facility]. AT BEDSIDE. PATIENT AWAKE AND ALERT. VSS. 1445 DR. RAZA SPEAKING WITH PATIENT AND PATIENTS'S REGARDING RESULTS OF EXAM. PATIENT TAKING COFFEE, WATER AND A BLUEBERRY MUFFIN PO. VSS. 1455 PATIENT DENIES COMPLAINT. VSS. TAKING PO WELL. 1510 VSS. TOLERATED PO. REPORTS HAVING A LOT OF BELCHING AND ABDOMINAL GAS. ENCOURAGE PATIENT TO CONTINUE BELCHING. 1515 IV DISCONTINUED. CATH INTACT. TOLERATED WELL. VERBAL AND WRITTEN DISCHARGE INSTRUCTIONS GIVEN TO PAIENT AND PATIENT'S . BOTH VERBALIZED UNDERSTANDING. 1531 PATIENT DISCHARGED TO POV VIA W/C WITH PATIENT'S .
== END 2020-11-25 15:31 | disposition home or self-care (01) ==
LOC: SDCO 11:55
PROVIDERS: Internal Medicine Gastroenterology
DX: K22.2 Esophageal obstruction (principal); K29.70 Gastritis, unspecified, without bleeding; K22.4 Dyskinesia of esophagus; K44.9 Diaphragmatic hernia without obstruction or gangrene; R63.4 Abnormal weight loss; I10 Essential (primary) hypertension; I27.20 Pulmonary hypertension, unspecified; I48.91 Unspecified atrial fibrillation; I34.0 Nonrheumatic mitral (valve) insufficiency; I49.5 Sick sinus syndrome; E78.5 Hyperlipidemia, unspecified; K21.9 Gastro-esophageal reflux disease without esophagitis; F32.9 Major depressive disorder, single episode, unspecified; Z90.89 Acquired absence of other organs; Z79.01 Long term (current) use of anticoagulants; Z85.3 Personal history of malignant neoplasm of breast; Z85.118 Personal history of other malignant neoplasm of bronchus and lung; Z79.899 Other long term (current) drug therapy; Z90.710 Acquired absence of both cervix and uterus; Z95.0 Presence of cardiac pacemaker
CPT/HCPCS: C1726; J7030

== ENCOUNTER → 2021-07-09 | Outpatient (CLI) | payer MEDICARE, BC | LOC: MC.RAD 13:09 | DX: Z12.31 Encounter for screening mammogram for malignant neoplasm of breast (principal); Z85.3 Personal history of malignant neoplasm of breast; Z90.11 Acquired absence of right breast and nipple ==

== ENCOUNTER 2021-09-12 15:22 | Emergency (ER) | payer MEDICARE, BC ==
[~2021-09-12] VITALS: Ht 175.3 cm; Wt 63.6 kg
[2021-09-12 15:33] VITALS: TEMP 97.9
[2021-09-12 15:56] LABS: BASO # 0.1 K/mm3 (0.0-0.2); BASO % 0.8 % (0.0-2.0); EOS # 0.1 K/mm3 (0.0-0.7); EOS % 0.7 % (0.0-4.0); GRAN # 6.1 K/mm3 (1.4-6.5); GRAN % 67.6 % (42.2-75.2); HEMATOCRIT 42.9 % (37.0-47.0); HEMOGLOBIN 13.5 g/dl (12.5-16.0); LYMPH % 22.2 % (20.0-51.0); MEAN CELL VOLUME 96 fl (80.0-100.0); MEAN CORPUSCULAR HEMOGLOBIN 30 pg (27-31); MEAN CORPUSCULAR HGB CONC 32 g/dl (33.0-37.0); MEAN PLATELET VOLUME 9.7 fl (7.4-10.4); MONO # 0.8 K/mm3 (0.1-0.6); MONO % 8.4 % (1.7-9.3); PLATELET COUNT 468 K/mm3 (130-400); RED BLOOD COUNT 4.46 M/mm3 (4.10-5.30); REDCELL DISTRIBUTION WIDTH-CV 13.8 % (11.5-14.5)
[2021-09-12 16:03] LABS: INR 3.2 (0.8-3.0); PROTHROMBIN TIME 36.2 SECONDS (9.7-12.8)
[2021-09-12 16:15] LABS: ALBUMIN 3.5 gm/dL (3.4-4.8); BILIRUBIN,TOTAL 0.9 mg/dL (0.2-1.2); CALCIUM 9.5 mg/dL (8.4-10.2); POTASSIUM 3.6 mmol/L (3.5-4.5); TOTAL PROTEIN 7.6 gm/dL (6.2-8.1)
[2021-09-12 19:12] LABS: COLLECTION METHOD CLEAN CATCH
[2021-09-12 19:33] LABS: MUCOUS Present (NOT PRESENT); PH 6 (5-8); SQUAMOUS EPITHELIAL 0-2 /hpf (0-10); URINE APPEARANCE Cloudy (CLEAR/HAZY); URINE BACTERIA Occasional /hpf (NONE SEEN); URINE BILIRUBIN Negative (NEGATIVE); URINE BLOOD 1+ (NEGATIVE); URINE COLOR Yellow (YELLOW); URINE GLUCOSE Negative (NEGATIVE); URINE KETONE Negative (NEGATIVE); URINE LEUKOCYTE ESTERASE Trace (NEGATIVE); URINE NITRATE Negative (NEGATIVE); URINE PROTEIN(semi-quant) Negative (NEGATIVE); URINE UROBILINOGEN Negative (NEGATIVE)
[2021-09-12] MEDS ORDERED: LIPITOR 80MG80 MG PO (19:49)
[2021-09-12 20:17] VITALS: BP 152/95; PULSE 89
== END 2021-09-12 20:17 | disposition home or self-care (01) ==
LOC: COL.ER 15:22
PROVIDERS: Emergency Medicine
DX: H53.9 Unspecified visual disturbance (principal); I48.91 Unspecified atrial fibrillation; Z98.41 Cataract extraction status, right eye; Z98.42 Cataract extraction status, left eye; Z88.8 Allergy status to other drugs, medicaments and biological substances; Z79.01 Long term (current) use of anticoagulants
CPT/HCPCS: J7030; Q9967

== ENCOUNTER 2023-05-12 17:52 | Inpatient (IN) | payer MEDICARE, BC ==
[~2023-05-12] VITALS: Ht 175.3 cm; Wt 64.3 kg
[~2023-05-12 17:52] MED LIST changes: +CALCIUM 600MG+D1 TAB PO; +DESYREL 50MG50 MG PO; +LIPITOR 80MG80 MG PO; +MACRODANTIN100 PO; +OMEGA XL; +PROZAC 20MG20 MG PO; +SEROQUEL 2525 MG/TAB PO; +TAMIFLU30 MG PO; +ULTRAM 50MG TAB50 MG PO
[2023-05-12 18:40] LABS: BASO % 0.4 % (0.0-2.0); GRAN % 78.8 % (42.2-75.2); HEMATOCRIT 38.9 % (37.0-47.0); HEMOGLOBIN 12.1 g/dl (12.5-16.0); LYMPH # 0.6 K/mm3 (1.2-3.4); MEAN CELL VOLUME 97 fl (80.0-100.0); MEAN CORPUSCULAR HEMOGLOBIN 30 pg (27-31); MEAN CORPUSCULAR HGB CONC 31 g/dl (33.0-37.0); MEAN PLATELET VOLUME 9.7 fl (7.4-10.4); MONO # 0.9 K/mm3 (0.1-0.6); MONO % 12.4 % (1.7-9.3); PLATELET COUNT 455 K/mm3 (130-400); RED BLOOD COUNT 4.03 M/mm3 (4.10-5.30); REDCELL DISTRIBUTION WIDTH-CV 14.6 % (11.5-14.5)
[2023-05-12 18:45] LABS: ALBUMIN 3.2 gm/dL (3.4-4.8); BILIRUBIN,TOTAL 0.8 mg/dL (0.2-1.2); CALCIUM 9.4 mg/dL (8.4-10.2); CREATININE, serum 1.06 mg/dL (0.57-1.11); POTASSIUM 3.7 mmol/L (3.5-4.5); TOTAL PROTEIN 7.5 gm/dL (6.2-8.1)
[2023-05-12 18:50] LABS: TROPONIN-I 0.018 ng/mL (0.00-0.033)
[2023-05-12 18:52] LABS: INR 6.6 (0.8-3.0); PROTHROMBIN TIME 68.3 SECONDS (9.7-12.8)
[2023-05-12 20:00] VITALS: BP 120/76; PULSE 99; TEMP 98.5
[2023-05-12 20:01] LABS: URINE APPEARANCE Hazy (CLEAR/HAZY); URINE BLOOD Negative (NEGATIVE); URINE COLOR Yellow (YELLOW); URINE GLUCOSE Negative (NEGATIVE); URINE KETONE Negative (NEGATIVE); URINE NITRATE Negative (NEGATIVE); URINE PROTEIN(semi-quant) 1+ (NEGATIVE); URINE RBC 0-2 /hpf (0-2)
[2023-05-12 20:02] LABS: AMORPHOUS CRYSTAL Present (NOT PRESENT); URINE BACTERIA Moderate /hpf (NONE SEEN)
[2023-05-12 20:47] LABS: C-REACTIVE PROTEIN 2.78 mg/dL (0.00-0.50); MAGNESIUM 1.9 mg/dL (1.6-2.6)
[2023-05-12] MEDS ORDERED: PACERONE100 MG PO (20:49)
[2023-05-12] MEDS ORDERED: [UNRECOGNIZED DRUG - OTHER] OP (20:50)
[2023-05-12] MEDS ORDERED: METROCREAM CREA45 GM TP (20:50)
[2023-05-12] MEDS ORDERED: ULTRAM 50MG TAB50 MG PO (20:51)
[2023-05-12] MEDS ORDERED: VITAMIN D31000 IU PO (20:53)
[2023-05-12] MEDS ORDERED: B-121000 MCG PO (20:53)
--- NOTE | 2023-05-12 21:20 | NUR ---
Patient arrived to the unit at this time with belongings including glasses. Assessment complete. Unable to complete med rec at this time. Patient unsure of what meds she takes or how often. Waiting to get medication list from Hospitalist. IV in left AC flushes easily with no complications. Patient changed into yellow gown, socks, and fall risk band on. Oriented patient to room, bed, call light, and phone. Denies any pain or needs at this time. Call light and personal items in reach. Bed in low position and bed alarm on. Bladder scan performed showing 355mL of urine. Patient straight cathed per hospitalist order and got 450mL urine out.
--- NOTE | 2023-05-12 21:30 | NUR ---
JVD present upon admission.
[2023-05-12 22:00] VITALS: BP 120/76; PULSE 99; TEMP 98.5
[2023-05-12 23:54] VITALS: BP 134/66; PULSE 100; TEMP 98.1
[2023-05-13] VITALS (18 sets, daily range): BP systolic 109–135; BP diastolic 57–97; PULSE 79–111; TEMP 97.7–98.6
--- NOTE | 2023-05-13 04:10 | NUR ---
Bladder scan showed 425mL of urine in bladder. Assissted patient up to bedside comode with x2 assisst and patient had a total output of 400mL
--- NOTE | 2023-05-13 06:26 | NUR ---
Med rec complete
[2023-05-13 07:03] LABS: HEMATOCRIT 37.4 % (37.0-47.0); HEMOGLOBIN 11.9 g/dl (12.5-16.0); MEAN CELL VOLUME 95 fl (80.0-100.0); MEAN CORPUSCULAR HEMOGLOBIN 30 pg (27-31); MEAN CORPUSCULAR HGB CONC 32 g/dl (33.0-37.0); MEAN PLATELET VOLUME 9.7 fl (7.4-10.4); PLATELET COUNT 396 K/mm3 (130-400); RED BLOOD COUNT 3.93 M/mm3 (4.10-5.30); REDCELL DISTRIBUTION WIDTH-CV 14.6 % (11.5-14.5)
[2023-05-13 07:21] LABS: CALCIUM 8.8 mg/dL (8.4-10.2); CREATININE, serum 0.99 mg/dL (0.57-1.11); POTASSIUM 3.8 mmol/L (3.5-4.5); PROTHROMBIN TIME 63.8 SECONDS (9.7-12.8)
[2023-05-13 07:22] LABS: INR 6.1 (0.8-3.0)
[2023-05-13 07:55] LABS: BAND 1 % (0-10); LYMPHOCYTE 15 % (20.0-51.0); NEUTROPHILS 66 % (42.0-75.2); PLATELET ESTIMATE NORMAL (NORMAL)
[2023-05-13 07:56] LABS: OVALOCYTES 1+
[2023-05-13] MEDS ORDERED: COUMADIN 1MG1 MG/TAB PO (14:12)
--- NOTE | 2023-05-13 15:11 | NUR ---
workers compensation analyst was unable to complete intake with patient due to her being in isolation. SW attempted to call pt's room phone with no answer. SW left a message on spouse, Todd's phone. PT/OT pending at this time. Discharge Plan: tea
--- NOTE | 2023-05-13 16:25 | NUR ---
Patient received from Bekah Alford RN. Patient alert and oriented x4 at this time, at bedside. Lung sounds coarse. Skin tear to left chamberlain scabbed over. Gait not observed at this time. Patient currently in bed with call light in reach and working on crossword puzzle.
--- NOTE | 2023-05-13 17:57 | NUR ---
Patient remains stable. Dry cough continues, patient shown how to use incentive spirometer and encouraged to utilize it every couple hours. Education provided on preventing pneumonia. Patient verbalized understanding. Patient currently in bed still working on [employer]. Fresh water provided. Call light within reach, all needs met at this time.
--- NOTE | 2023-05-13 20:20 | NUR ---
Patient resting in bed. Denies any pain or needs at this time. Assessment complete. IV in left AC flushes easily with no complications. Call ligth and personal items in reach. Bed in low positon and bed alarm on.
[2023-05-14] VITALS (14 sets, daily range): BP systolic 110–128; BP diastolic 2–82; PULSE 84–100; TEMP 97.7–98.9
--- NOTE | 2023-05-14 05:15 | NUR ---
Patient is very confused and convinced she is not in her correct room and demanding someone take her to her room. Gabriel trying to get out of bed. Hospitalist called at 0530 and recieved orders for 0.125mg IV ativan now. Orders entered and med administered.
--- NOTE | 2023-05-14 06:30 | NUR ---
Patient resting in bed with respirations even and unlabored. No signs of pain or needs at this time. Call light and personal items in reach. Bed in low position and bed alarm on.
[2023-05-14 07:45] LABS: HEMOGLOBIN 11.2 g/dl (12.5-16.0); MEAN CELL VOLUME 94 fl (80.0-100.0); MEAN CORPUSCULAR HEMOGLOBIN 30 pg (27-31); MEAN CORPUSCULAR HGB CONC 32 g/dl (33.0-37.0); MEAN PLATELET VOLUME 9.9 fl (7.4-10.4); PLATELET COUNT 351 K/mm3 (130-400); RED BLOOD COUNT 3.69 M/mm3 (4.10-5.30); REDCELL DISTRIBUTION WIDTH-CV 14.7 % (11.5-14.5)
[2023-05-14 07:47] LABS: HEMATOCRIT 34.7 % (37.0-47.0)
[2023-05-14 07:48] LABS: CALCIUM 8.8 mg/dL (8.4-10.2); CREATININE, serum 0.96 mg/dL (0.57-1.11); POTASSIUM 3.5 mmol/L (3.5-4.5)
[2023-05-14 07:57] LABS: INR 3.7 (0.8-3.0); PROTHROMBIN TIME 39.3 SECONDS (9.7-12.8)
--- NOTE | 2023-05-14 08:30 | NUR ---
PATIENT AWAKE AND ALERT, SITTING U PIN BED. PATIENT IS SEVERELY HARD OF HEARING. NO HEARING AIDS AT BEDSIDE. PILLS HAD TO BE CRUSHED AND PLACED IN APPLESAUCE. RN ATTEMPTED TO INSTRUCT PATIENT TO TAKE PILLS WITH WATER OR OJ, HOWEVER AFTER MULTIPLE ATTEMPTS PATIENT KEPT PICKING UP OTHER THINGS ON HER TRAY. PATIENTS AT BEDSIDE, ASSISTING PATIENT WITH BREAKFAST. PATIENT TAKEN TO COMMODE IN BATHROOM AND BACK TO BED WITH 2 ASSIST, PT PRESENT AT THIS TIME. PATINET NOW RESTING IN BED, FALL PRECAUTIONS IN PLACE.
--- NOTE | 2023-05-14 11:00 | NUR ---
RN SPOKE WITH PATIENT REGARDING HIS DECISION TO TAKE PATIENT HOME, AND REFUSING HOME HEALTH. JANETTE ASKED RN IF HIS WOULD BE LEAVING TODAY. THIS RN INFORMED HIM THAT D/T HER NEEDING 1LNC CONTINUOUS, THE PHYSICIAN WOULD LIKE TO BEGIN ORAL STEROIDS IN HOPES HER O2 NEEDS MAY IMPROVE , THEREFORE HIS WILL NOT BE DISCHARGING TODAY. RN INFORMED PATIENT AND HER DOMONIQUE THAT IT IS THE NURSING STAFF, PHYSICIAN AND THERAPY RECCOMENDATION THAT HIS GET PLACEMENT, SO SHE CAN RECIEVE MORE [facility]ARE [facility] AND WORK ON HER STRENGTH. PATIENTS THEM TOLD RN "WELL THATS NOT WHAT SHE WANTS, SHE WANTS TO GO HOME AND I WANT HER TO COME HOME TOO. I ALREADY HAVE A NEW PLAN FOR HER. I HAVE A FOUR WHEELED WALKER WITH A SEAT, AND SHE CAN STAND AND SIT ON THAT AND ILE ROLL HER TO THE BATHRROM AND BACK TO HER CHAIR IN THE LIVING ROOM." RN INFORMED THEM THAT WOULD NOT BE BENEFICIAL TO THE PATIENT, AND WOULD NOT HELP HER IMPROVE HER STRENGTH. RN TOLD DOMONIQUE THAT I UNDERESTAND THAT IS WHAT THEY WOULD LIKE, HOWEVER THAT DOES NOT SEEM TO BE THE SAFEST OPTION FOR HRE AT THIS TIME. PATIENTS AGAIN SAID HE WILL BE TAKING HER HOME. THIS RN PASSED THIS INFORMATION ON THE [facility].
--- NOTE | 2023-05-14 11:41 | NUR ---
barnworker groom could not contact pt on the room phone and her spouse did not answer his phone. VIKTOR was able to meet , Todd outside of the isolated room. Todd confirmed they live together in [place]. Pt sees Dr. Christine Garcia [facility]. Pt has home oxygen for night time and reports no other DME. Pt needs full assistance with ADLS. Todd reports he helps her with everything. Todd reports he and his children are DPOA-HC, but it is at home. SW advised him to bring in a copy. Todd reports pt wants to just go home at discharge. ADRIANA Lozada informed VIKTOR that PT says home vs SNF. RN feels as though pt is too weak to return home. RN spoke with pt and spouse whom report they would like her to return home. Discharge Plan: home
--- NOTE | 2023-05-14 16:06 | NUR ---
acoustical material worker spoke with Dr. Cervantes who advised pt should get HH services. SW went to discuss this with and pt. Pt in isolation and stepped out of the room. SW discusssed HH. They have used [facility] and others in the past. Todd would like to "just go home, they bother too much." Todd was very adamant and would not like to pursue this. He reports their daughter lives in [place] [employer] [place], so she can be of assistance. reports he is changing "some things" regarding going home and their set up. Pt will potentially discharge tomorrow and need oxygen. Discharge Plan: Home
--- NOTE | 2023-05-14 18:59 | NUR ---
PATIENT AWAKE AND ALERT, SITTING UP IN BED. PATINET HAD INCONTINENT EPISODE OF URINE. FULL BED CHANGE COMPLETE. PATIENT CURRENTLY SITTING UP IN BED. PATIENT DENIES ANY NEEDS OR COMPLAINTS AT THIS TIME. FALL PRECAUTIONS IN PLACE, CALL LIGHT WITHIN REACH.
[2023-05-15] VITALS (7 sets, daily range): BP systolic 114–151; BP diastolic 82–90; PULSE 64–86; TEMP 97.4–98.2
[2023-05-15 06:46] LABS: HEMATOCRIT 39.4 % (37.0-47.0); HEMOGLOBIN 11.9 g/dl (12.5-16.0); MEAN CELL VOLUME 97 fl (80.0-100.0); MEAN CORPUSCULAR HEMOGLOBIN 29 pg (27-31); MEAN CORPUSCULAR HGB CONC 30 g/dl (33.0-37.0); MEAN PLATELET VOLUME 9.9 fl (7.4-10.4); PLATELET COUNT 396 K/mm3 (130-400); RED BLOOD COUNT 4.05 M/mm3 (4.10-5.30); REDCELL DISTRIBUTION WIDTH-CV 14.8 % (11.5-14.5)
[2023-05-15 06:58] LABS: INR 2.5 (0.8-3.0)
--- NOTE | 2023-05-15 07:00 | NUR ---
PATIENT CURRENTLY ASLEEP, RESTING IN BED. FALL PRECAUTIONS IN PLACE.
[2023-05-15 07:08] LABS: CREATININE, serum 0.88 mg/dL (0.57-1.11); MAGNESIUM 2.2 mg/dL (1.6-2.6)
--- NOTE | 2023-05-15 11:00 | NUR ---
PATIENT AWAKE AND ALERT, SITTING UP IN BED. PATINET DENIES ANY NEEDS OR COMPLAINTS AT THIS TIME. PATIENT CURRENTLY ON ROOM AIR WITH 94% O2 SAT. PATIENT RECHECKED 15 MINUTES LATER, O2 SATURATION STILL STABLE AT 93%.
[2023-05-15] MEDS ORDERED: TAMIFLU30 MG PO (12:03)
[2023-05-15] MEDS ORDERED: COUMADIN 1MG1 MG/TAB PO (12:04)
[2023-05-15] MEDS ORDERED: DECADRON6 MG PO (12:11)
--- NOTE | 2023-05-15 12:30 | NUR ---
PATIENT AND GIVEN DSICHARGE INSTRUCTIONS AND EDUCATION, PATIENTS IV AND TELE REMOVED. PATIENT ASSISTED TO WHEELCHAIR AND TAKEN VIA WHEELCHAIR TO ER ENTRANCE BY PCT WHERE SHE LEFT IN STABLE CONDITION IN HER HUSBANDS CARE.
== END 2023-05-15 13:00 | disposition home or self-care (01) | DRG 871 ==
LOC: COL.ER 17:52 → MEDICAL 20:25
PROVIDERS: Internal Medicine; Nurse Practitioner Family; Physician Assistant; ADMIT Internal Medicine
DX: A41.89 Other specified sepsis (principal); J96.01 Acute respiratory failure with hypoxia; U07.1 COVID-19; I48.92 Unspecified atrial flutter; J90 Pleural effusion, not elsewhere classified; N39.0 Urinary tract infection, site not specified; E87.20 Acidosis, unspecified; I48.91 Unspecified atrial fibrillation; I49.5 Sick sinus syndrome; I27.20 Pulmonary hypertension, unspecified; I34.0 Nonrheumatic mitral (valve) insufficiency; K21.9 Gastro-esophageal reflux disease without esophagitis; F32.A Depression, unspecified; E78.5 Hyperlipidemia, unspecified; J10.1 Influenza due to other identified influenza virus with other respiratory manifestations; F03.90 Unspecified dementia, unspecified severity, without behavioral disturbance, psychotic disturbance, mood disturbance, and anxiety; I12.9 Hypertensive chronic kidney disease with stage 1 through stage 4 chronic kidney disease, or unspecified chronic kidney disease; R13.10 Dysphagia, unspecified; R79.1 Abnormal coagulation profile; D64.9 Anemia, unspecified; T45.515A Adverse effect of anticoagulants, initial encounter; N18.9 Chronic kidney disease, unspecified; Z95.0 Presence of cardiac pacemaker; Z85.3 Personal history of malignant neoplasm of breast; Z85.118 Personal history of other malignant neoplasm of bronchus and lung; Z88.6 Allergy status to analgesic agent; Z87.891 Personal history of nicotine dependence; Z79.01 Long term (current) use of anticoagulants; Z90.2 Acquired absence of lung [part of]; Z86.718 Personal history of other venous thrombosis and embolism; Z88.8 Allergy status to other drugs, medicaments and biological substances; Z99.81 Dependence on supplemental oxygen; Z23 Encounter for immunization
CPT/HCPCS: A9284; J0696; J2060; J7030; J8540

== ENCOUNTER 2023-06-30 20:30 | Emergency (ER) | payer MEDICARE, BC ==
[~2023-06-30] VITALS: Ht 172.7 cm; Wt 72.7 kg
[~2023-06-30 20:30] MED LIST changes: +B-121000 MCG PO; +DECADRON6 MG PO; +METROCREAM CREA45 GM TP; +PACERONE100 MG PO; +VITAMIN D31000 IU PO; +[UNRECOGNIZED DRUG - OTHER] OP
[2023-06-30 20:34] VITALS: TEMP 98.9
[2023-06-30 21:02] LABS: BASO # 0.1 K/mm3 (0.0-0.2); BASO % 0.9 % (0.0-2.0); EOS # 0.1 K/mm3 (0.0-0.7); EOS % 0.6 % (0.0-4.0); GRAN # 6.5 K/mm3 (1.4-6.5); GRAN % 75.7 % (42.2-75.2); HEMATOCRIT 41.9 % (37.0-47.0); LYMPH # 1.3 K/mm3 (1.2-3.4); LYMPH % 14.8 % (20.0-51.0); MEAN CELL VOLUME 98 fl (80.0-100.0); MEAN CORPUSCULAR HEMOGLOBIN 30 pg (27-31); MEAN CORPUSCULAR HGB CONC 31 g/dl (33.0-37.0); MEAN PLATELET VOLUME 9.8 fl (7.4-10.4); MONO # 0.6 K/mm3 (0.1-0.6); MONO % 7.3 % (1.7-9.3); PLATELET COUNT 514 K/mm3 (130-400); RED BLOOD COUNT 4.27 M/mm3 (4.10-5.30)
[2023-06-30 21:22] LABS: ALBUMIN 3.3 gm/dL (3.4-4.8); BILIRUBIN,TOTAL 0.6 mg/dL (0.2-1.2); CALCIUM 9.7 mg/dL (8.4-10.2); CREATININE, serum 1.11 mg/dL (0.57-1.11); POTASSIUM 3.9 mmol/L (3.5-4.5)
[2023-06-30 21:25] LABS: URINE APPEARANCE Clear (CLEAR/HAZY); URINE BLOOD Negative (NEGATIVE); URINE COLOR Yellow (YELLOW); URINE GLUCOSE Negative (NEGATIVE); URINE KETONE Negative (NEGATIVE); URINE NITRATE Negative (NEGATIVE); URINE PROTEIN(semi-quant) Negative (NEGATIVE)
[2023-06-30 21:28] LABS: TROPONIN-I 0.026 ng/mL (0.00-0.033)
[2023-06-30 21:28] LABS: COLLECTION METHOD CLEAN CATCH; SQUAMOUS EPITHELIAL 0-2 /hpf (0-10); URINE RBC None Seen /hpf (0-2)
[2023-06-30 21:29] LABS: URINE BACTERIA None Seen /hpf (NONE SEEN)
[2023-06-30] MEDS ORDERED: Iohexol 300 - 100 ML VIAL IV ONE (21:36)
[2023-06-30] MEDS ORDERED: NS 64 ML IV SCH (21:37)
[2023-06-30] MEDS ORDERED: NS 1,000 ML IV ONE ×2 (21:45→22:30)
[2023-06-30] MEDS ORDERED: [UNRECOGNIZED DRUG - OTHER] TP (23:13)
[2023-07-01] MEDS ORDERED: DULCOLAX STOOL100 MG PO (00:42)
[2023-07-01 00:51] VITALS: BP 144/99; PULSE 88
== END 2023-07-01 01:15 | disposition home or self-care (01) ==
LOC: COL.ER 20:30
PROVIDERS: Nurse Practitioner Primary Care
DX: K59.00 Constipation, unspecified (principal)
CPT/HCPCS: J7030; Q9967

== ENCOUNTER 2023-09-17 21:54 | Inpatient (IN) | payer MEDICARE, BC ==
[~2023-09-17] VITALS: Ht 170.2 cm; Wt 64.1 kg
[~2023-09-17 21:54] MED LIST changes: +DULCOLAX STOOL100 MG PO; +THERATEARS 15 M15 ML OP; -[UNRECOGNIZED DRUG - OTHER] OP; +[UNRECOGNIZED DRUG - OTHER] TP
[2023-09-17 22:30] LABS: BASO % 0.4 % (0.0-2.0); GRAN # 6.6 K/mm3 (1.4-6.5); GRAN % 81.6 % (42.2-75.2); HEMATOCRIT 44.1 % (37.0-47.0); HEMOGLOBIN 13.5 g/dl (12.5-16.0); LYMPH # 0.9 K/mm3 (1.2-3.4); LYMPH % 10.6 % (20.0-51.0); MEAN CELL VOLUME 95 fl (80.0-100.0); MEAN CORPUSCULAR HEMOGLOBIN 29 pg (27-31); MEAN CORPUSCULAR HGB CONC 31 g/dl (33.0-37.0); MEAN PLATELET VOLUME 9.6 fl (7.4-10.4); MONO # 0.6 K/mm3 (0.1-0.6); MONO % 7.2 % (1.7-9.3); PLATELET COUNT 527 K/mm3 (130-400); RED BLOOD COUNT 4.64 M/mm3 (4.10-5.30); REDCELL DISTRIBUTION WIDTH-CV 14.6 % (11.5-14.5)
[2023-09-17 22:32] LABS: INR 4.9 (0.8-3.0)
[2023-09-17 22:38] LABS: PROTHROMBIN TIME 51.9 SECONDS (9.7-12.8)
[2023-09-17 22:45] LABS: ALBUMIN 3.4 g/dL (3.4-4.8); BILIRUBIN,TOTAL 0.7 mg/dL (0.2-1.2); C-REACTIVE PROTEIN 0.87 mg/dL (0.00-0.50); CALCIUM 9.7 mg/dL (8.4-10.2); CREATININE, serum 1.08 mg/dL (0.57-1.11); TOTAL PROTEIN 7.4 g/dl (6.2-8.1)
[2023-09-17 22:51] LABS: TROPONIN-I 0.032 ng/mL (0.00-0.033)
[2023-09-17] MEDS ORDERED: Furosemide 40 MG/4 ML VIAL IV ONE (23:15)
[2023-09-17] MEDS ORDERED: Acetaminophen 325 MG TAB PO PRN (23:45)
[2023-09-17] MEDS ORDERED: Albuterol/Ipratropium 3 MG-0.5 MG/3 ML Neb Soln IH PRN (23:45)
[2023-09-17] MEDS ORDERED: Ondansetron 4 MG/2 ML VIAL IV PRN (23:45)
[2023-09-17] MEDS ORDERED: Polyethylene Glycol 3350 17 GM PDS PO PRN (23:45)
[2023-09-17 23:53] LABS: COLLECTION METHOD CATHETER
[2023-09-17 23:57] LABS: PH 5.5 (5.0-8.5); URINE APPEARANCE CLEAR (CLEAR/HAZY); URINE BLOOD NEGATIVE (NEGATIVE); URINE COLOR YELLOW (YELLOW); URINE GLUCOSE NEGATIVE (NEGATIVE); URINE KETONE NEGATIVE (NEGATIVE); URINE NITRATE NEGATIVE (NEGATIVE); URINE PROTEIN(semi-quant) NEGATIVE (NEGATIVE)
[2023-09-18] VITALS (11 sets, daily range): BP systolic 98–138; BP diastolic 62–88; PULSE 81–98; TEMP 97.5–97.9
[2023-09-18] MEDS ORDERED: COUMADIN 1MG1 MG/TAB PO ×2 (01:36→01:37)
[2023-09-18] MEDS ORDERED: VITAMIN B12 1541 TAB PO (01:53)
--- NOTE | 2023-09-18 01:55 | NUR ---
patient arrived from ED at 0040, alert and oriented x2, pt an unreliable source for admission questions not family present, intake and med rec done to best of this RN's ability at this time. pt denies chest pain and reports shortness of breath on 3L o2 with o2 sats at 99%. salcedo intact draining clear pale yellow urine. IV in RAC is patent, site is clean dry and intact. BLE and feet have +3 pitting edema, bruise on top of left foot and small scattered bruising on extremities, redness on coccyx region and bilater heels noted, pillow under bilater legs of foot elevation. pt has no further needs, questions, or concerns at this time. fall precuations in place, call light within reach. will continue to monitor.
[2023-09-18 06:58] LABS: BASO # 0.1 K/mm3 (0.0-0.2); BASO % 0.6 % (0.0-2.0); EOS % 0.3 % (0.0-4.0); GRAN # 5.8 K/mm3 (1.4-6.5); GRAN % 74.9 % (42.2-75.2); HEMOGLOBIN 12.9 g/dl (12.5-16.0); LYMPH # 0.9 K/mm3 (1.2-3.4); LYMPH % 12.1 % (20.0-51.0); MEAN CELL VOLUME 92 fl (80.0-100.0); MEAN CORPUSCULAR HEMOGLOBIN 29 pg (27-31); MEAN CORPUSCULAR HGB CONC 32 g/dl (33.0-37.0); MEAN PLATELET VOLUME 9.8 fl (7.4-10.4); MONO # 0.9 K/mm3 (0.1-0.6); MONO % 11.8 % (1.7-9.3); PLATELET COUNT 487 K/mm3 (130-400); RED BLOOD COUNT 4.47 M/mm3 (4.10-5.30); REDCELL DISTRIBUTION WIDTH-CV 14.5 % (11.5-14.5)
--- NOTE | 2023-09-18 07:00 | NUR ---
patient asleep, resting in bed. respirations within reach. rt lowered o2 to 1LNC- o2 sat of 95%. all fall precautions in place. call light within reach.
[2023-09-18 07:15] LABS: CALCIUM 9.4 mg/dL (8.4-10.2); CREATININE, serum 1.07 mg/dL (0.57-1.11); POTASSIUM 3.9 mEq/L (3.5-4.5)
[2023-09-18 07:17] LABS: INR 5.8 (0.8-3.0); PROTHROMBIN TIME 60.4 SECONDS (9.7-12.8)
[2023-09-18 07:39] LABS: THYROID STIMULATING HORMONE 1.197 uIU/mL (0.350-4.940)
--- NOTE | 2023-09-18 08:16 | NUR ---
critical pt and inr reported to hospitalist marketing and public relations manager
[2023-09-18] MEDS ORDERED: FLUoxetine 20 MG CAP PO SCH (09:00)
[2023-09-18] MEDS ORDERED: Amiodarone 200 MG TAB PO SCH ×2 (09:00→21:00)
[2023-09-18] MEDS ORDERED: Furosemide 40 MG/4 ML VIAL IV SCH (09:00)
[2023-09-18] MEDS ORDERED: Sennosides/Docusate 8.6-50 MG TAB PO SCH (09:00)
--- NOTE | 2023-09-18 09:15 | NUR ---
patient awake and alert, sitting up in bed. fall preacautiosn in place. patinets at bedside. med rec completed and reviewed with patients . call light wtihin reach.
--- NOTE | 2023-09-18 09:56 | NUR ---
SW met with patient's spouse (Todd Lee) present at her bedside- patient was resting. SW gather info for intake and discuss discharge planning. Patient's spouse shared [facility] [place], with all amenities. Todd informed SW that his uses walker, shower chair and toliet riser with rails- no additional DMEs reported. Todd shared that he has been providing support with patient with ADLs and does not have any HH care at this time. JUAN on file and shared that her current PCP is Dr Garcia with [facility] in [place], however this PCP will be transferring to new role and will be assign new Dr- next appt is in January. Reports that pharmacy of choice is [facility]. Discharge plan: home- pending further medical evaluation.
--- NOTE | 2023-09-18 14:12 | NUR ---
Data: Physician Scribe visit attempted during Physician Scribe rounds. Patient was sleeping. Assessment: None at this time. Plan of Care: Chaplains will remain available as needed/requested while Patient is admitted to this hospital.
--- NOTE | 2023-09-18 17:00 | NUR ---
FIDEL AWAKE AND ALERT, SITTIGN UP IN BED. PATIENT DENIES ANY NEEDS OR COMPLAINTS AT THIS TIME. FALL PRECAUTIONS INPLACE. AMY LIGHT WITHIN REACH. BED ALARM ON.
[2023-09-19] VITALS (10 sets, daily range): BP systolic 97–115; BP diastolic 56–71; PULSE 73–99; TEMP 97.3–98.6
[2023-09-19 06:37] LABS: BASO % 0.4 % (0.0-2.0); EOS % 0.3 % (0.0-4.0); GRAN # 7.1 K/mm3 (1.4-6.5); GRAN % 76.1 % (42.2-75.2); HEMATOCRIT 38.6 % (37.0-47.0); HEMOGLOBIN 11.8 g/dl (12.5-16.0); LYMPH # 0.9 K/mm3 (1.2-3.4); LYMPH % 9.8 % (20.0-51.0); MEAN CELL VOLUME 94 fl (80.0-100.0); MEAN CORPUSCULAR HEMOGLOBIN 29 pg (27-31); MEAN CORPUSCULAR HGB CONC 31 g/dl (33.0-37.0); MONO # 1.2 K/mm3 (0.1-0.6); MONO % 13.1 % (1.7-9.3); PLATELET COUNT 447 K/mm3 (130-400); RED BLOOD COUNT 4.11 M/mm3 (4.10-5.30); REDCELL DISTRIBUTION WIDTH-CV 14.5 % (11.5-14.5)
[2023-09-19 06:51] LABS: CALCIUM 8.8 mg/dL (8.4-10.2); CREATININE, serum 1.24 mg/dL (0.57-1.11); POTASSIUM 3.7 mEq/L (3.5-4.5)
--- NOTE | 2023-09-19 07:20 | NUR ---
PATIETN ASLEEP, RESTING IN BED. [facility]. FALL PRECAUTINS IN PLACE.
[2023-09-19 11:18] LABS: PROTHROMBIN TIME 72.1 SECONDS (9.7-12.8)
[2023-09-19 11:19] LABS: INR 6.9 (0.8-3.0)
--- NOTE | 2023-09-19 12:10 | NUR ---
NOTIFIED OF PATIENT CRITICAL INR AND PT
--- NOTE | 2023-09-19 13:00 | NUR ---
PATINET ASLEEP, RESTING IN BED. PATIENTS AT BEDSIDE. CALL LGITH WITHIN REACH, FALL PREACUTIONS IN PLACE.
[2023-09-19] MEDS ORDERED: Phytonadione (Vitamin K) 5 MG/5 ML Oral Susp PO ONE (14:30)
--- NOTE | 2023-09-19 17:02 | NUR ---
MD INFORMED OF PATIENT NEW HEMATURIA. PATIENT GIVEN VITAMIN K DOSE EARLIER THIS AFTERNOON. NO NEW ORDERS AT THIS TIME.
[2023-09-20] VITALS (18 sets, daily range): BP systolic 110–130; BP diastolic 55–89; PULSE 67–89; TEMP 97.5–98.7
[2023-09-20 06:51] LABS: BASO % 0.3 % (0.0-2.0); EOS % 0.2 % (0.0-4.0); GRAN # 8.6 K/mm3 (1.4-6.5); GRAN % 79.5 % (42.2-75.2); HEMATOCRIT 38.5 % (37.0-47.0); HEMOGLOBIN 12.2 g/dl (12.5-16.0); LYMPH % 9.2 % (20.0-51.0); MEAN CELL VOLUME 91 fl (80.0-100.0); MEAN CORPUSCULAR HEMOGLOBIN 29 pg (27-31); MEAN CORPUSCULAR HGB CONC 32 g/dl (33.0-37.0); MEAN PLATELET VOLUME 9.5 fl (7.4-10.4); MONO # 1.1 K/mm3 (0.1-0.6); MONO % 10.4 % (1.7-9.3); PLATELET COUNT 425 K/mm3 (130-400); RED BLOOD COUNT 4.22 M/mm3 (4.10-5.30); REDCELL DISTRIBUTION WIDTH-CV 14.4 % (11.5-14.5)
[2023-09-20 07:00] LABS: INR 1.9 (0.8-3.0); PROTHROMBIN TIME 19.9 SECONDS (9.7-12.8)
[2023-09-20 07:09] LABS: CALCIUM 8.9 mg/dL (8.4-10.2); CREATININE, serum 1.12 mg/dL (0.57-1.11); POTASSIUM 3.6 mEq/L (3.5-4.5)
--- NOTE | 2023-09-20 13:06 | NUR ---
Meter Inspector met with patient and her , Todd to review discharge plan and to present/review IM form. Patient's signed IM on patient's behalf and verbalized understanding of patient's rights. SW placed form in chart and provided copy to patient. SW discussed Home Health services and Todd declined at this time stating he does everything needed for patient. Discharge Plan; Home
--- NOTE | 2023-09-20 16:10 | NUR ---
See moderate sedation flow sheet for charting.
--- NOTE | 2023-09-20 16:57 | NUR ---
BEDSIDE REPORT COMPLETED WITH NAYA WRIGHT. CALL LIGHT WITHIN REACH, VITAL SIGN REVIEWED. NAYA WRIGHT DENIES QUESTIONS/CONCERNS AT THIS TIME.
--- NOTE | 2023-09-20 17:37 | NUR ---
PATIENT REQUIRES 1 LPM O2. PATIENT DROPS TO 86% ON ROOM AIR, IT TAKES TIME BUT SHE WILL DROP.
--- NOTE | 2023-09-20 21:30 | NUR ---
PT ALERT TO SELF. VSS ON 1L/NC. PT DENIES PAIN OR N/V. ASSISTED TO BSC WITH X2 ASSIST. PT BACK IN BED. DENIES FURTHER NEEDS. CALL LIGHT IN REACH
[2023-09-21] VITALS (12 sets, daily range): BP systolic 111–144; BP diastolic 67–82; PULSE 78–84; TEMP 97.5–98.5
--- NOTE | 2023-09-21 06:02 | NUR ---
PT RESTING IN BED WITH UNLABORED RESP. DENIES NEEDS. CALL LIGHT IN REACH
[2023-09-21 07:05] LABS: BASO # 0.1 K/mm3 (0.0-0.2); BASO % 0.5 % (0.0-2.0); EOS % 0.2 % (0.0-4.0); GRAN # 7.8 K/mm3 (1.4-6.5); GRAN % 82.4 % (42.2-75.2); HEMATOCRIT 38.6 % (37.0-47.0); HEMOGLOBIN 11.7 g/dl (12.5-16.0); LYMPH # 0.7 K/mm3 (1.2-3.4); LYMPH % 7.3 % (20.0-51.0); MEAN CELL VOLUME 95 fl (80.0-100.0); MEAN CORPUSCULAR HEMOGLOBIN 29 pg (27-31); MEAN CORPUSCULAR HGB CONC 30 g/dl (33.0-37.0); MEAN PLATELET VOLUME 9.9 fl (7.4-10.4); MONO # 0.9 K/mm3 (0.1-0.6); MONO % 9.3 % (1.7-9.3); PLATELET COUNT 414 K/mm3 (130-400); RED BLOOD COUNT 4.06 M/mm3 (4.10-5.30); REDCELL DISTRIBUTION WIDTH-CV 14.5 % (11.5-14.5)
[2023-09-21 07:13] LABS: INR 1.2 (0.8-3.0); PROTHROMBIN TIME 13.3 SECONDS (9.7-12.8)
[2023-09-21 07:24] LABS: CALCIUM 9.1 mg/dL (8.4-10.2); CREATININE, serum 1.02 mg/dL (0.57-1.11); POTASSIUM 3.7 mEq/L (3.5-4.5)
[2023-09-21] MEDS ORDERED: Heparin 5,000 UNITS/ML 1 ML VIAL IV ONE (09:15)
[2023-09-21] MEDS ORDERED: Heparin/D5W 250 ML IV SCH (09:15)
[2023-09-21] MEDS ORDERED: Heparin 5,000 UNITS/ML 1 ML VIAL IV PRN (09:15)
[2023-09-21 10:20] LABS: PARTIAL THROMBOPLASTIN TIME 33.8 SECONDS (26.0-37.0)
--- NOTE | 2023-09-21 19:10 | NUR ---
PATIENT SITTING UP IN BED WATCHING TV WITH NO FAMILY PRESENT WITH NO ACUTE DISTRESS NOTED. PATIENT ON 1 LITER OF OCYGEN VIA NC. HEPARIN INFUSING INTO LEFT FOREARM WITH NO COMPLICATIONS NOTED. INT TO RIGHT AC INTACT WITH NO COMPLICATIONS NOTED. PATIENT DENIES ANY NEEDS. PATIENT CARE ASSUMED FORM NAYA. BED IN LOW POSITION WITH WHEELS LOCKED WITH RAILS UP X3 AND CALL LIGHT WITHIN REACH. BED ALARM ON.
--- NOTE | 2023-09-21 21:50 | NUR ---
PATIENT RESTING SITTING UP IN BED WATCHING TV WITH NO FAMILY PRESENT WITH NO ACUTE DISTRESS NOTED. PATIENT ON 1 LITER OF OXYGEN VAI NC. INT TO RIGHT AC INTACT WITH ON COMPLICATIONS NOTED. HEPARIN INFUSING INTO LEFT FOREARM WITH NO COMPLICATIONS NOTED. ASSESSMENT AND MEDICATION ADMINISTRATION COMPLETED AT THIS TIME. PATIENT TOLERATED WELL. PATIENT REQUESTED ICE AND WATER. BOTH GIVEN. ALL NEEDS MET. BED IN LOW POSITION WITH WHEELS LOCKED WITH RAILS UP X3 AND CALL LIGHT WITHIN REACH. BED ALARM ON.
[2023-09-22] VITALS (11 sets, daily range): BP systolic 111–139; BP diastolic 58–80; PULSE 78–81; TEMP 98–98.6
--- NOTE | 2023-09-22 07:30 | NUR ---
FOUND PT OFF O2 79%. PLACED BACK ON 2 LPM NC 91%
[2023-09-22 08:48] LABS: INR 1.6 (0.8-3.0); PROTHROMBIN TIME 16.9 SECONDS (9.7-12.8)
--- NOTE | 2023-09-22 19:10 | NUR ---
PATIENT SITTING UP IN BED WATCHING TV WITH NO FAMILY PRESENT WITH NO ACUTE DISTRESS NOTED. PATIENT ON 2 LITERS OF OXYGEN VIA NC. INT TO RIGHT AC INTACT WITH NO COMPLICATIONS NOTED. HEPARIN DRIP INFUSING INTO LEFT FOREARM WITH NO COMPLICATIONS NOTED. PATIENT DENIES ANY NEEDS AT THIS TIME. PATIENT CARE ASSUMED FROM GRACIE. BED IN LOW POSITION WITH WHEELS LOCKED WITH RAILS UP X3 AND CALL LIGHT WITHIN REACH. BED ALARM ON.
--- NOTE | 2023-09-22 19:15 | NUR ---
PATIENT RESTING SITTING UP IN BED WATCHING TV WITH NO FAMILY PRESENT WITH NO ACUTE DISTRESS NOTED. PATIENT ON 2 LITERS OF OXYGEN VIA NC. HEPARIN INFUSING INTO LEFT FOREARM WITH NO COMPLICATIONS NOTED. INT TO RIGHT AC INTACT WITH NO COMPLICATIONS NOTED. ASSESSMENT COMPLETED AT THIS TIME. PATIENT TOLERATED WELL. PATIENT DENIES ANY NEEDS AT THIS TIME. BED IN LOW POSITION WITH WHEELS LOCKED WITH RAILS UP X3 AND CALL LIGHT WITHIN REACH. BED ALARM ON.
--- NOTE | 2023-09-22 19:54 | NUR ---
HEPARIN XA 0.5 PER PROTOCOL NO CHANGE AT GOAL. CHECKED RESULT WITH CAIT WRIGHT AND PRIMARY NURSE.
--- NOTE | 2023-09-22 20:40 | NUR ---
PATIENT RESTING WITH EYES CLOSED IN BED WITH TV OFF WITH NO FAMILY PRESENT WITH NO ACUTE DISTRESS NOTED. PATIENT ON 2 LITERS OF OXYGEN VIA NC. HEPARIN INFUSING INTO LEFT FOREARM WITH NO COMPLICATIONS NOTED. INT TO RIGHT AC INTACT WITH NO COMPLICATIONS NOTED. PATIENT EASILY AROUSED. MEDICATION ADMINISTRATION COMPLETED AT THIS TIME. PATIENT TOLERATED WELL. PATIENT DENIES ANY NEEDS AT THIS. BED IN LOW POSITION WITH WHEELS LOCKED WITH RAILS UP X3 AND CALL LIGHT WITHIN REACH. BED ALARM ON.
[2023-09-23] VITALS (8 sets, daily range): BP systolic 117–136; BP diastolic 67–77; PULSE 79–81; TEMP 97.3–97.7
[2023-09-23 07:04] LABS: HEMATOCRIT 38.2 % (37.0-47.0); HEMOGLOBIN 11.8 g/dl (12.5-16.0); MEAN CELL VOLUME 93 fl (80.0-100.0); MEAN CORPUSCULAR HEMOGLOBIN 29 pg (27-31); MEAN CORPUSCULAR HGB CONC 31 g/dl (33.0-37.0); MEAN PLATELET VOLUME 10.2 fl (7.4-10.4); PLATELET COUNT 385 K/mm3 (130-400); RED BLOOD COUNT 4.12 M/mm3 (4.10-5.30); REDCELL DISTRIBUTION WIDTH-CV 14.3 % (11.5-14.5)
--- NOTE | 2023-09-23 07:25 | NUR ---
patient asleep, resting in bed. patinet appears to be in no acute distress. call light wtihin reach. fall precautins in place.
[2023-09-23 07:28] LABS: CALCIUM 9.4 mg/dL (8.4-10.2); CREATININE, serum 0.97 mg/dL (0.57-1.11); POTASSIUM 3.6 mEq/L (3.5-4.5)
[2023-09-23 07:31] LABS: PROTHROMBIN TIME 21.2 SECONDS (9.7-12.8)
[2023-09-23 08:21] LABS: BAND 1 % (0-10); EOSINOPHIL 1 % (0-4); LYMPHOCYTE 8 % (20.0-51.0); NEUTROPHILS 75 % (42.0-75.2)
[2023-09-23 08:22] LABS: PLATELET ESTIMATE NORMAL (NORMAL)
[2023-09-23] MEDS ORDERED: COUMADIN 1MG1 MG/TAB PO (11:32)
[2023-09-23] MEDS ORDERED: PACERONE100 MG PO (11:33)
[2023-09-23] MEDS ORDERED: OXYGEN NASAL.CANN (11:57)
--- NOTE | 2023-09-23 15:00 | NUR ---
PATIENT RECIEVED HOME 02. PATEINT GIVEN BED BATH, IVS AND TELE REMOVED. PAITENT DRESSED AND READY FOR DISCAHGRE. PATIENTS DISCHARGE INSTRUCTIONS AND EDUCATION WERRE DISCUSSED WITH HER AND DAUGHTER. PATIENT VOICES VBEING READY TO GO HOME. PATIENT TAKEN VIA WHEELCHIAR TO PATIENT ENTRANCE WHERE SHE ELFT IN STABLE CONDITION IN THE CARE OF HER AND DAUGHTER.
--- NOTE | 2023-09-23 16:05 | NUR ---
Outdoor Landscape Architect attended clinical rounds with the team and patient is ready for discharge today. RT advised patient will need home oxygen set up. SW met with patient and her at bedside. Patient's advised she has previously used [facility] for oxygen needs. SW also discussed Home Health services again and patient's would like to use [facility] as they have used them recently. SW contacted [facility] and faxed referral with discharge orders. SW also contacted Óscar at [facility] and faxed referral and discharge orders. [facility]
--- NOTE | 2023-09-24 16:14 | NUR ---
Fitter'S Assistant was contacted by [facility] and was advised patient is not doing well at home. VIKTOR contacted patient's spouse, Todd who requested patient go to SNF at [facility]. VIKTOR contacted Emre at [facility] and sent referral via secure email. Emre accepted patient and will admit this afternoon. VIKTRO updated [facility].
== END 2023-09-23 15:00 | disposition home or self-care (01) | DRG 291 ==
LOC: COL.ER 21:54 → MEDICAL 23:34
PROVIDERS: Internal Medicine; Nurse Practitioner; Physician Assistant; ADMIT Hospitalist
PROC: 5A2204Z Restoration of Cardiac Rhythm, Single (ICD-10-PCS; principal; 2023-09-17)
DX: I11.0 Hypertensive heart disease with heart failure (principal); J96.01 Acute respiratory failure with hypoxia; I48.91 Unspecified atrial fibrillation; Z95.0 Presence of cardiac pacemaker; N18.30 Chronic kidney disease, stage 3 unspecified; E78.5 Hyperlipidemia, unspecified; F32.A Depression, unspecified
CPT/HCPCS: J1644; J1940; J2704